=== PATIENT | male | born 1965 | race Caucasian/White ===

== ENCOUNTER 2017-01-14 04:27 | Emergency (ER) | payer OTHER ==
[~2017-01-14] VITALS: Ht 175.3 cm; Wt 84.1 kg
[2017-01-14 04:31] VITALS: BP 162/94; PULSE 101; RESP 24; O2SAT 98
--- NOTE | 2017-01-14 04:57 | ED.REPORT ---
HPI-Dental/Mouth Prob Date of Service Jan 14, 2017 ED Provider: Jah Partida MD Pt is a 52 y.o. male who presents to the ED c/o facial swelling onset yesterday. Pt states that he was seen by his dentist yesterday for mouth pain and abscess and was prescribed Augmentin. Pt states that he has only taken 2 but feels as though the swelling has extended to his neck. He was told to come into the ED if he noticed neck swelling. Pt states he has a follow-up appointment in 4 days. Nursing Notes Stated Complaint: FACIAL SWELLING Chief Complaint: Dental Nursing Notes Reviewed: Yes Allergies: Uncoded Allergies: GREEN PEAS (Allergy, Severe, Throat swelling, 01/14/17) General Time Seen by MD: 04:56 Chief Complaint Jaw swelling Hx Obtained From: Patient Arrived By: Walk-in Onset Occurred: Yesterday Symptom Duration: Since onset Location: : Gum mandible left Quality: Painful Severity: Current: Moderate Past Medical History Past Medical History Reports: Hypertension Past Surgical History None reported Ambulatory Status Independent Review of Systems Dental abscess Ears / Nose / Throat: Reports: Mouth pain Complete sys rev & neg: except as marked. Skin: Reports Swelling (face and neck) Physical Exam Initial Vital Signs Vital Signs (First) Date Time Temp Pulse Resp B/P Pulse Ox O2 Delivery O2 Flow Rate FiO2 01/14/17 04:31 36.7 101 24 162/94 98 Room Air Initial VS: Reviewed, Vital signs normal Abdomen / GI: No distention Extremities: Vascular intact, Neuro intact Skin: Warm, Dry, No cyanosis Neurologic: Alert, Oriented, Nonfocal Psychiatric: Mood/affect normal, Behavior normal, Normal thought content ENT: Airway patent Dental / Gums: Positive: Dental abscess (left lower jaw extending to neck), Tender to percussion Neck: Atraumatic General/Constitutional: Awake, Alert, No acute distress, Well appearing, Well developed, Well hydrated, Well nourished, Not toxic appearing Head / Eyes: Atraumatic, Normocephalic Respiratory / Chest: Atraumatic, Breath sounds NL, Breath sounds = bilat, No respiratory distress Cardiovascular: Heart rate NL, Regular rhythm, Heart sounds NL, Peripheral circulation NL Interpretation & Diagnostics Lab Results Interpretation Result Diagram: 01/14/17 0513 01/14/17 0513 Test 01/14/17 05:13 White Blood Count 11.7th/mm3 (3.8-10.1) Red Blood Count 5.14mil/mm3 (4.40-5.80) Hemoglobin 15.6g/dL (13.8-17.2) Hematocrit 44.2% (41.0-50.0) Mean Corpuscular Volume 86.0fL (81-100) Mean Corpuscular Hemoglobin 30.4pg (27.0-35.0) Mean Corpuscular Hemoglobin Concent 35.3% (32.0-37.0) Red Cell Distribution Width 13.1% (12.3-15.4) Platelet Count 185bil/L (150-400) Neutrophils (%) (Auto) 67.4% (40-74) Lymphocytes (%) (Auto) 15.5% (14-46) Monocytes (%) (Auto) 10.4% (4-12) Eosinophils (%) (Auto) 6.3% (0-5) Basophils (%) (Auto) 0.2% (0-3) Sodium Level 137mEq/L (134-144) Potassium Level 4.9mEq/L (3.5-5.2) Chloride Level 102mEq/L (97-108) Carbon Dioxide Level 21mmol/L (18-29) Blood Urea Nitrogen 20mg/dL (6-24) Creatinine 0.84mg/dL (0.76-1.27) Estimat Glomerular Filtration Rate 102mL/min (>59) Glucose Level 159mg/dL (60-99) Calcium Level 9.0mg/dL (8.5-10.1) Magnesium Level 2.1mg/dL (1.6-2.6) Total Bilirubin 0.5mg/dL (0.0-1.2) Aspartate Amino Transf (AST/SGOT) 40U/L (0-50) Alanine Aminotransferase (ALT/SGPT) 43U/L (0-44) Alkaline Phosphatase 85U/L (25-150) Total Protein 7.3g/dL (6.4-8.4) Albumin 4.3g/dL (3.4-5.0) Lab Results Interpretation: Elevated white blood count Re-Eval/Medical Decision Med Decision/Clinical Course 52-year-old male who has a dental abscess. He was seen by a local oral surgeon and started on Augmentin. He was told to report to the emergency room if he had any extension of the swelling down into his neck. He is found to have an elevated white blood count. CT scan is currently pending. His care will be turned over at change of shift to the oncoming physician. Counseled Regarding: Diagnosis Discharge & Departure Shift Change Sign-Out Patient Care Transferred: Yes () Discussed Complaint(s): Yes Laboratory Evaluation: Lab evaluation discussed Imaging Studies: Done, await radiologist Primary Impression: Dental abscess Additional Impression: Jaw pain Discharge Condition All VS Reviewed: Yes Condition: Improved Referrals: Willy Ballesteros MD (PCP) Care Transferred to: Dr. Wilkins Care Transferred at: 06:00 Scribe Attestation Portions of this note were transcribed by Allie Pollack. I, Dr. Partida personally performed the history, physical exam and medical decision-making; I reviewed and confirmed the accuracy of the information in the transcribed note. Signed by: Jefferson Georges, 01/14/17 and 0553. copies to: Willy Ballesteros MD, Howard L MD Jan 14, 2017 04:57 ALLIE POLLACK Jan 14, 2017 05:04
[2017-01-14] MEDS ORDERED: 0.9% Sodium Chloride 1,000 ML IV ONE (05:02)
[2017-01-14 05:22] LABS: BASOPHILS % (AUTO) 0.2 % (0-3); EOSINOPHILS % (AUTO) 6.3 % (0-5); MONOCYTES % (AUTO) 10.4 % (4-12); Mean Corpuscular Hemoglobin 30.4 pg (27.0-35.0); NEUTROPHILS % (AUTO) 67.4 % (40-74); Platelet Count 185 bil/L (150-400)
[2017-01-14 05:42] LABS: Magnesium 2.1 mg/dL (1.6-2.6)
[2017-01-14] MEDS ORDERED: Dexamethasone 10 mg/mL Inj IVPUSH ONE (06:05)
[2017-01-14] MEDS ORDERED: Clindamycin Inj 900 MG in IV Premix 1 EACH IV ONE (06:05)
[2017-01-14] MEDS ORDERED: DXM4T PO (08:16)
[2017-01-14 08:57] VITALS: BP 150/92; PULSE 88; RESP 16
--- NOTE | 2017-01-14 09:12 | DRSVH ---
PROCEDURE: CT NECK SOFT TISSUES WITH CONTRAST ([id number]) INDICATIONS: left ranulfo/neck abscess TECHNIQUE: After the administration of intravenous contrast, 3.0 mm axial sections acquired from the sella to th e aortic arch. Additional oblique axial 3.0 mm sections acquired through the pharynx. 3 mm thick co ventura reformats were generated. For radiation dose reduction, the following was used: automated exp osure control. COMPARISON: None. FINDINGS: Image quality: Motion degradation of the study. Lymph nodes: Borderline enlarged bilateral level II lymph nodes, and scattered shoddy ilateral submen brook lymph nodes. Vessels: Visualized vasculature appears patent. Neck spaces: The oropharynx, nasopharynx, and pharynx demonstrate no mucosal lesions. The vocal cor ds, false vocal cords, pyriform sinuses, epiglottis, vallecula, and tongue base all appear normal. E xtramucosal spaces appear unremarkable. Glands: The parotid and submandibular glands appear normal. Thyroid gland unremarkable. Miscellaneous: Visualized brain and orbits appear normal. Diffuse scarring and bilateral upper lobe blebs. Severe left perimandibular subcutaneous soft tissue swelling. There is a rim enhancing 8mm abs cess seen adjacent to the left mandible at the level of the left mandibular second molar tooth apex. There is associated periapical lucency. Bones: No suspicious bony lesions. Bilateral maxillary and ethmoid sinus disease. There is also bila teral sphenoid sinus disease. IMPRESSION: Small 8 mm abscess adjacent to the left mandibular second molar apex, with overlying soft tissue swel ling and cellulitis. Associated periapical lucency is also present. Pansinusitis as above. Dictated by: Ryan Ashton M.D. on 01/14/2017 at 8:53 Approved by: Ryan Ashton M.D. on 01/14/2017 at 9:10
== END 2017-01-14 08:50 | disposition home or self-care (01) ==
LOC: SED 04:27
DX: K04.7 Periapical abscess without sinus (principal); I10 Essential (primary) hypertension; F17.200 Nicotine dependence, unspecified, uncomplicated
CPT/HCPCS: 36415; 70491; 80053; 83735; 85025; 96361; 96365; 96375; 99285; J1100; J7030; Q9967